=== PATIENT | male | born 1980 | race Hispanic/Latino ===

== ENCOUNTER 2019-11-19 15:06 | Emergency (ER) | payer OTHER ==
[2019-11-19] MEDS ORDERED: ACETAMINOPHEN EXTRA STRENGTH 500 MG TABLET ONE (15:23)
[2019-11-19] MEDS ORDERED: ONDANSETRON ODT 4 MG TAB ONE ×2 (15:52→19:57)
[2019-11-19 16:09] LABS: RAPID GROUP A STREP NEGATIVE (NEGATIVE)
== END 2019-11-19 20:32 ==
LOC: EDH 15:06
DX: R50.9 Fever, unspecified (principal); R11.2 Nausea with vomiting, unspecified; R19.7 Diarrhea, unspecified; R10.9 Unspecified abdominal pain; H92.02 Otalgia, left ear; R07.89 Other chest pain; Z72.0 Tobacco use
CPT/HCPCS: 36415; 87633; 87804; 87880